=== PATIENT | female | born 1990 | race African-American/Black ===

== ENCOUNTER 2024-06-13 19:05 | Emergency (ER) | payer MEDICAID ==
[~2024-06-13] VITALS: Ht 172.7 cm; Wt 109.0 kg
[2024-06-13 19:37] VITALS: PULSE 72; TEMP 98.7; O2SAT 98
[2024-06-14 01:20] VITALS: BP 147/70; RESP 20
[2024-06-14] MEDS: LIDOCAINE 5% PATCH TOP SCH (01:20)
== END 2024-06-14 02:14 | disposition home or self-care (01) ==
LOC: ER 19:05
DX: M54.50 Low back pain, unspecified (principal); J45.909 Unspecified asthma, uncomplicated; Z98.890 Other specified postprocedural states; V49.9XXA Car occupant (driver) (passenger) injured in unspecified traffic accident, initial encounter; Y93.89 Activity, other specified; Y92.89 Other specified places as the place of occurrence of the external cause; Y99.8 Other external cause status
CPT/HCPCS: 99283